=== PATIENT | female | born 1995 | race Two or more races ===

== ENCOUNTER 2024-09-20 16:00 | Inpatient (IN) | payer OTHER ==
[2024-09-20 17:57] VITALS: BMI 37.8
[2024-09-20] MEDS: ELECTROLYTE-148 SOLN 1,000 ML IV SCH (18:09)
[2024-09-20] MEDS: LACTATED RINGERS SOLUTION 1,000 ML IV SCH (18:20)
[2024-09-20] MEDS ORDERED: BUTORPHANOL TARTRATE 2 MG/ML VIAL ONE (19:09)
[2024-09-20] MEDS ORDERED: PROMETHAZINE HCL 25 MG/1 ML VIAL ONE (19:10)
[2024-09-20] MEDS: BUTORPHANOL TARTRATE 2 MG/ML VIAL IVPB PRN (19:15)
[2024-09-20] MEDS: PROMETHAZINE HCL 25 MG/1 ML VIAL IVPB ONE (19:15)
[2024-09-20 19:52] LABS: BASO % 0.3 % (0-2.0); EOS % 0.1 % (0-4.5); HEMATOCRIT 37.2 % (32.4-45.2); HEMOGLOBIN 12.6 GM/dL (10.7-15.3); LYMPH % 8.1 % (8-40); MCH 32.9 pg (25.7-33.7); MEAN CELL VOLUME 96.8 fl (80-96); MEAN PLT VOLUME 7.1 fl (7.5-11.1); MONO % 5.8 % (3.8-10.2); NEUT % 85.7 % (42.8-82.8); PLATELET COUNT 312 10^3/uL (134-434); RBC 3.85 M/mm3 (3.60-5.2); RDW 13.4 % (11.6-15.6)
[2024-09-20 20:08] LABS: INR 0.91 (0.83-1.09); PROTHROMBIN TIME (PATIENT) 10.5 SEC (9.7-13.0)
[2024-09-20 20:09] LABS: POTASSIUM 4.1 mmol/L (3.5-5.1)
[2024-09-20 20:10] LABS: ACTIVATED PTT 28.7 SECONDS (25.2-36.5); CALCIUM 9.4 mg/dL (8.5-10.1)
[2024-09-20 20:11] LABS: BLOOD UREA NITROGEN 8.9 mg/dL (7-18)
[2024-09-20 20:14] LABS: CREATININE 0.7 mg/dL (0.55-1.3)
[2024-09-20] MEDS ORDERED: OXYTOCIN 20 UNITS in 0.9% NS 20 UNIT/1,000 ML INFUS.BAG IV ONE (22:39)
[2024-09-20] MEDS ORDERED: LIDOCAINE HCL 1% PRESERVATIVE FREE - 30ML VIAL ONE (22:40)
[2024-09-20] MEDS: OXYTOCIN 20 UNITS in 0.9% NS 20 UNIT/1,000 ML INFUS.BAG IV SCH (23:13)
[2024-09-20] MEDS: METHYLERGONOVINE MALEATE 0.2 MG/1 ML AMP IM PRN (23:18)
[2024-09-20] MEDS ORDERED: BISACODYL 10 MG SUPP.RECT RC PRN (23:56)
[2024-09-20] MEDS ORDERED: ACETAMINOPHEN 325 MG TABLET (FP) PO PRN (23:56)
[2024-09-20] MEDS ORDERED: oxyCODONE HCL 5 MG TABLET PO PRN (23:56)
[2024-09-21] MEDS ORDERED: IBUPROFEN 600 MG TABLET (FP) PO ONE (01:29)
[2024-09-21] MEDS: IBUPROFEN 600 MG TABLET (FP) PO PRN (01:30)
[2024-09-21 07:28] LABS: BASO % 0.3 % (0-2.0); EOS % 0.1 % (0-4.5); HEMATOCRIT 31.4 % (32.4-45.2); HEMOGLOBIN 10.6 GM/dL (10.7-15.3); LYMPH % 10.4 % (8-40); MCH 32.8 pg (25.7-33.7); MCHC 33.7 g/dl (32.0-36.0); MEAN CELL VOLUME 97.4 fl (80-96); MEAN PLT VOLUME 6.9 fl (7.5-11.1); MONO % 7.9 % (3.8-10.2); NEUT % 81.3 % (42.8-82.8); PLATELET COUNT 292 10^3/uL (134-434); RBC 3.22 M/mm3 (3.60-5.2); RDW 13.2 % (11.6-15.6); WHITE BLOOD COUNT 18.9 K/mm3 (4.0-10.0)
[2024-09-21 15:53] VITALS: RESP 18
[2024-09-21] MEDS: BENZOCAINE 20% 57 GM BOTTLE TP PRN (18:05)
[2024-09-21] MEDS: SENNOSIDES/DOCUSATE COMBO (SENNA PLUS) TABLET (UD) PO PRN (22:22)
[2024-09-21] MEDS: BENZOCAINE 28 GM HEMORRHOIDAL OINTMENT TP PRN (22:34)
[2024-09-21] MEDS: WITCH HAZEL 50% (TUCKS) 40 PAD/JAR PAD TP PRN (22:34)
[2024-09-22 11:03] VITALS: BP 118/74; PULSE 87; TEMP 97.9
== END 2024-09-22 15:15 | disposition home or self-care (01) | DRG 807 ==
LOC: JDEL 16:00 → JLDR 16:27 → J3W 09-21 01:29
PROVIDERS: ADMIT Specialist; ATTEND Specialist
PROC: 10E0XZZ Delivery of Products of Conception, External Approach (ICD-10-PCS; principal; 2024-09-20)
PROC: 0KQM0ZZ Repair Perineum Muscle, Open Approach (ICD-10-PCS; 2024-09-20)
PROC: 0W8NXZZ Division of Female Perineum, External Approach (ICD-10-PCS; 2024-09-20)
DX: O48.0 Post-term pregnancy (principal); O70.1 Second degree perineal laceration during delivery; Z3A.40 40 weeks gestation of pregnancy; Z37.0 Single live birth
CPT/HCPCS: 36415; 59409; 80048; 85025; 85610; 85730; 86780; 86850; 86900; 86901